=== PATIENT | female | born 1990 | race Caucasian/White ===

== ENCOUNTER 2021-04-17 17:34 | Emergency (ER) | payer OTHER ==
[~2021-04-17 17:34] MED LIST: BENTYL 20MG TAB20 MG PO; ZOFRAN4 MG PO
[2021-04-17 18:55] LABS: HEMOGLOBIN 13.9 gm/dl (12.3-15.3); RED BLOOD COUNT 5.08 M/UL (4.00-5.10); WHITE BLOOD COUNT 7.1 K/UL (4.5-11.0)
[2021-04-17 19:17] LABS: BUN/CREATININE RATIO 12 (0-10)
[2021-04-17] MEDS ORDERED: PERCOCET 5/325 T1 EA PO (21:19)
== END 2021-04-17 21:40 | disposition home or self-care (01) ==
LOC: ER1 17:34
PROVIDERS: Emergency Medicine
DX: R10.31 Right lower quadrant pain (principal); R10.32 Left lower quadrant pain; Z90.49 Acquired absence of other specified parts of digestive tract; F17.200 Nicotine dependence, unspecified, uncomplicated
CPT/HCPCS: 80053; 81001; 83690; 84703; 85025; 96374; 96375; 99284; J2270; J2405; J7030; Q9967

== ENCOUNTER 2021-04-20 09:16 | Emergency (ER) | payer OTHER ==
[~2021-04-20 09:16] MED LIST changes: +PERCOCET 5/325 T1 EA PO
[2021-04-20] MEDS ORDERED: IBUPROFEN600 MG PO (10:38)
[2021-04-20] MEDS ORDERED: CEPHALEXIN500 MG PO (10:50)
== END 2021-04-20 11:32 | disposition home or self-care (01) ==
LOC: ER1 09:16
DX: S90.424A Blister (nonthermal), right lesser toe(s), initial encounter (principal); L02.611 Cutaneous abscess of right foot; F17.200 Nicotine dependence, unspecified, uncomplicated; X58.XXXA Exposure to other specified factors, initial encounter
CPT/HCPCS: 73630; 87070; 87077; 87186; 87205; 96372; 99283; J1885